=== PATIENT | female | born 1945 | race Caucasian/White ===

== ENCOUNTER → 2016-12-14 | Outpatient (CLI) | payer OTHER ==
--- NOTE | 2016-12-14 11:04 | PCVCIMAG ---
APPROVED REPORT Study performed: 12/14/2016 09:52:15 EXAM: Comprehensive 2D, Doppler, and color-flow Echocardiogram Status: routine Other Information Study Quality: Adequate Indications Aortic Valve Disease Aortic Stenosis, HTN 2D Dimensions LVEF(%): 64.67 (>50%) IVSd: 12.39 (7-11mm)LVOT Diam: 19.42 (18-24mm) LVDd: 37.85 mm PWd: 10.85 (7-11mm) LVDs: 24.71 (25-40mm) Left Atrium: 39.73 (27-40mm) Aortic Root: 28.91 mm LV Single Plane 4CH: 57.80 % LV Single Plane 2CH: 65.59 %Silva's LVEF: 61.69 % Biplane EF: 63.8 % Volumes Left Atrial Volume (Systole) Single Plane 4CH: 61.90 mLSingle Plane 2CH: 38.66 mL LA ESV Index: 27.00 mL/m2 Aortic Valve AoV Peak Messi.: 3.10 m/s AO Peak Gr.: 38.33 mmHgLVOT Max P.43 mmHg AO Mean Gr.: 19.48 mmHgLVOT Mean P.11 mmHg AO V2 Mean: 2.01 m/sLVOT Max V: 1.27 m/s AO V2 VTI: 80.52 cm LUIZ (VTI): 1.02 [id number] V1 VTI: 27.63 cm LUIZ Vmax: 1.21 cm2 Mitral Valve E/A Ratio: 1.4 MV Decel. Time: 218.69 ms MV E Max Messi.: 0.95 m/s MV A Messi.: 0.67 m/s MV PHT: 63.42 ms IVRT: 96.89 ms TDI E/Lateral E': 12.20E/Medial E': 13.10 Pulmonary Valve PV Peak Messi.: 1.05 m/sPV Peak Gr.: 4.39 mmHg Pulmonary Vein P Vein S: 0.31 m/sP Vein A: 0.26 m/s P Vein D: 0.49 m/sP Vein A Dur.: 148.8 msec P Vein S/D Ratio: 0.63 Tricuspid Valve TR Peak Messi.: 2.15 m/s TR Peak Gr.: 18.47 mmHg Left Ventricle The left ventricle is normal size. There is normal LV segmental wall motion. Mild concentric left ventricular hypertrophy. Left ventricular systolic function is normal. The left ventricular ejection fraction is within the normal range. LVEF is 60-65%. The left ventricular diastolic function is normal. Right Ventricle The right ventricle is normal size. The right ventricular systolic function is normal. Atria The left atrium size is normal. The right atrium size is normal. Aortic Valve The aortic valve is trileaflet, mildly calcified No aortic regurgitation is present. There is mild valvular aortic stenosis. Calculated aortic valve area is 1.2 cm2 with maximum pressure gradient of 38 mmHg and mean pressure gradient of 19 mmHg. Mitral Valve The mitral valve is normal in structure. There is mild mitral valve regurgitation noted. No evidence of mitral valve stenosis. Tricuspid Valve The tricuspid valve is normal in structure. There is no tricuspid valve regurgitation noted. Pulmonic Valve The pulmonary valve is normal in structure. There is trivial pulmonic valvular regurgitation. Great Vessels The aortic root is normal in size. IVC is normal in size and collapses with >50% inspiration Pericardium There is no pericardial effusion. <Conclusion> Left ventricular systolic function is normal. There is normal LV segmental wall motion. LVEF is 60-65%. The aortic valve is trileaflet, mildly calcified and stenotic. Calculated aortic valve area is 1.2 cm2 with maximum pressure gradient of 38 mmHg and mean pressure gradient of 19 mmHg. The mitral valve is normal in structure. No mitral insufficiency There is no pericardial effusion.
--- NOTE | 2016-12-14 11:07 | PCVCIMAG ---
APPROVED REPORT Indications Stenosis Risk Factors Hypertension: Hyperlipidemia Doppler Spectral Velocity Analysis PSV / EDVPSV / EDV ECA (R) 85 / 6 cm/sECA (L) 116 / 14 cm/s dICA (R) 114 / 33 cm/sdICA (L) 106 / 37 cm/s Mirella (R) 92 / 35 cm/smICA (L) 95 / 31 cm/s pICA (R) 70 / 22 cm/spICA (L) 71 / 20 cm/s Bulb (R) 56 / 18 cm/sBulb (L) 67 / 22 cm/s dCCA (R) 78 / 22 cm/sdCCA (L) 101 / 34 cm/s mCCA (R) 89 / 19 cm/smCCA (L) 98 / 32 cm/s Vert (R) 48 / 12 cm/sVert (L) 61 / 17 cm/s ICA/CCA 1.46ICA/CCA 1.05 Basic Measurements Blood Pressure: Pulses: Right Left RightLeft Brachial(Sitting) 132/[id number]/80mmHgTemporal Real Time B-Mode Imaging AreaRight Plaque DescriptionLeft Plaque Description VertebralAntegradeAntegrade Findings The right carotid bulb has mild plaque. The right proximal internal carotid artery shows <40% stenosis. The right common carotid artery shows no significant stenosis. The right external carotid artery shows no significant stenosis. The left carotid bulb has mild plaque. The left proximal internal carotid artery shows <40% stenosis. The left common carotid artery shows no significant stenosis. The left external carotid artery shows no significant stenosis. Conclusion 1. Right internal carotid artery stenosis (<40%) 2. Left internal carotid artery stenosis (<40%) 3. Antegrade vertebral flow
== END | disposition home or self-care (01) ==
LOC: PCVCIMAG 08:58
PROVIDERS: ATTEND Internal Medicine
DX: I65.23 Occlusion and stenosis of bilateral carotid arteries (principal); I34.0 Nonrheumatic mitral (valve) insufficiency; I10 Essential (primary) hypertension; I35.0 Nonrheumatic aortic (valve) stenosis; I47.1 Supraventricular tachycardia; I77.89 Other specified disorders of arteries and arterioles; E78.5 Hyperlipidemia, unspecified; I73.9 Peripheral vascular disease, unspecified; M19.90 Unspecified osteoarthritis, unspecified site; Z90.710 Acquired absence of both cervix and uterus; Z87.891 Personal history of nicotine dependence; Z79.82 Long term (current) use of aspirin; Z79.899 Other long term (current) drug therapy
CPT/HCPCS: 80061; 93005; 93306; 93880; G0463